=== PATIENT | male | born 1985 | race Caucasian/White ===

== ENCOUNTER 2022-02-06 11:15 | Emergency (ER) | payer OTHER ==
[~2022-02-06] VITALS: Ht 165.1 cm; Wt 82.6 kg
[2022-02-06] MEDS ORDERED: DOXYCYCLINE HY100 MG PO (11:36)
== END 2022-02-06 14:40 | disposition home or self-care (01) ==
LOC: ER 11:15
DX: J22 Unspecified acute lower respiratory infection (principal); Z20.822 Contact with and (suspected) exposure to COVID-19; Z88.2 Allergy status to sulfonamides

== ENCOUNTER 2023-07-06 09:42 | Emergency (ER) | payer OTHER ==
[~2023-07-06] VITALS: Ht 167.6 cm; Wt 83.9 kg
[~2023-07-06 09:42] MED LIST: DOXYCYCLINE HY100 MG PO
[2023-07-06 14:04] LABS: HEMATOCRIT 44.4 % (39.0-48.0); HEMOGLOBIN 15.3 g/dL (13-16.00); MEAN CELL VOLUME 82.9 fL (80.0-100.00); MEAN CORPUSCULAR HEMOGLOBIN 28.5 pg (27.00-32.0); MEAN CORPUSCULAR HGB CONC 34.4 g/dl (32.0-36.0); PLATELET COUNT 354 K/uL (150-450); RED BLOOD COUNT 5.36 M/uL (4.00-6.00); RED CELL DISTRIBUTION WIDTH 14.4 % (11.5-14.5)
== END 2023-07-06 15:37 | disposition home or self-care (01) ==
LOC: ER 09:43
PROVIDERS: General Practice
DX: J00 Acute nasopharyngitis [common cold] (principal); Z88.2 Allergy status to sulfonamides